=== PATIENT | female | born 1940 | race Caucasian/White ===

== ENCOUNTER 2017-04-14 11:34 | Inpatient (IN) | payer OTHER ==
[2017-04-14] MEDS ORDERED: ACETAMINOPHEN 325 MG TAB PO PRN (13:38)
[2017-04-14] MEDS ORDERED: SENNOSIDES 1 TAB PO PRN (13:40)
[2017-04-14] MEDS ORDERED: BISACODYL 10 MG SUPP PR PRN (13:40)
--- NOTE | 2017-04-14 15:07 | GHP ---
[f rep st] HISTORY AND PHYSICAL POST ADMISSION PHYSICIAN EVALUATION AND REHABILITATION TREATMENT PLAN DATE OF ADMISSION: 04/14/2017 DATE OF EVALUATION: 04/14/2017. TIME OF EVALUATION: 1300. REFERRING FACILITY: [facility]. IMPAIRMENT GROUP: 1.1. DATE OF ONSET: 04/11/2017. REFERRING PHYSICIAN: Dr. Dyer. CONSULTING PHYSICIANS: I have no information regarding whether there was a neurology consult or not. 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 ETIOLOGIC DIAGNOSIS: Left body involvement (right brain). HISTORY OF PRESENT ILLNESS: This patient was admitted to [facility] on 04/11/2017 after a fall in which she was unable to get up. She also was noted to have left upper and lower extremity weakness and slurred speech. Left leg weakness had been gradually developing over 1 - 2 days. She was diagnosed with a cerebrovascular accident. She was out of the time window for consideration of thrombolysis or thrombectomy. MR imaging showed an acute right pontine infarct and remote lacunar infarcts of the right valdivia radiata and internal capsule. CT of the head and neck showed no vascular dissection or occlusion. Echocardiogram showed an ejection fraction of 60% and no abnormalities. She was treated with permissive hypertension. She had been taking metoprolol prior to the event. After several days, lisinopril was started at a low dose. She also was begun on aspirin and atorvastatin. She was medically stabilized and appropriate for transfer to inpatient rehabilitation. She is without any acute complaints. She reports that she has had some left thigh muscle spasms. These have improved. She does not want any pain medications other than acetaminophen. She reports a history of oversedation on opiates in the past. OTHER STUDIES AND LABS DURING HER STAY: On 04/14/2017, a CBC showed a slightly low hematocrit at 35.7, hemoglobin was normal at 12.4 and CBC was otherwise within normal limits. Basic metabolic profile showed an elevated glucose at 152 , a creatinine of 1.1 and an estimated GFR of 49.2, otherwise was within normal limits. EKG showed normal sinus rhythm. A comprehensive metabolic profile was done on 04/11/2017. Liver functions were within normal limits. Glucose was high at 206. Renal function and electrolytes were within normal limits. Troponin was negative on 04/11/2017. Hemoglobin A1c was 7.7 on 04/11/2017. PRECAUTIONS: She is a fall risk and she has aspiration precautions. ACTIVE COMORBIDITIES: She has a tier 3 comorbidity of hemiparesis. PAST MEDICAL HISTORY: 1. Coronary artery disease with stenting in 2003. 2. Hypertension. 3. Diabetes mellitus type 2 which was managed with diet. 4. Right femur fracture and pelvic fractures in a fall approximately a year ago. PAST SURGICAL HISTORY: She has had operative repair of her right femur fracture and she has had a hysterectomy. PRE-HOSPITAL MEDICATIONS: Metoprolol 25 mg p.o. q.h.s. ADMISSION MEDICATIONS: 1. Acetaminophen 650 mg p.o. q.4 hours p.r.n. 2. Aspirin 325 mg p.o. daily. 3. Atorvastatin 40 mg p.o. q.h.s. 4. Enoxaparin 40 mg subcutaneous q.24 hours. 5. Glipizide ER 2.5 mg p.o. daily. 6. Lisinopril 5 mg p.o. daily. ALLERGIES: There are no known drug allergies. FAMILY HISTORY: Noncontributory. PSYCHOSOCIAL HISTORY: She is . She lives with her . She has been a homemaker. She has 3 children, 2 living in [place] and daughter Maddie living in [place]. There are no steps to enter the house. She is a nonsmoker and has no history of alcohol use. REVIEW OF SYSTEMS: She denies headache, vision changes, difficulty swallowing or loss of sensation. She reports weakness in the left upper and lower extremities. She denies fevers or chills, weight change, cough, dyspnea, nausea , vomiting, constipation or diarrhea, dysuria, skin rash or skin breakdown, joint pain or joint swelling. She is sleeping well and denies snoring. Otherwise, a 10-point review of systems is negative. PHYSICAL EXAM: VITAL SIGNS: Blood pressure is 170/92, heart rate is 93, respiratory rate is 18, oxygen saturation is 98% on room air, temperature is 36.6 degrees centigrade. GENERAL: This is a well-nourished, well-developed woman, appears her chronologic age, cooperative and in no acute distress. HEENT : Extraocular movements are intact. Pupils are equal, round, and reactive to light. Mucous membranes are moist. Dentition is in good condition. Airway is moderately crowded, Mallampati class 3. NECK: Supple. HEART: Regular rate and rhythm with no murmurs, rubs, or gallops. LUNGS: Clear to auscultation bilaterally. ABDOMEN: Soft, nontender, nondistended with normoactive bowel sounds and no hepatosplenomegaly. EXTREMITIES: There is no cyanosis, clubbing , or edema. Radial and dorsalis pedis pulses are 1+ bilaterally. NEUROLOGIC: She is alert and oriented x3. Cranial nerves 2-12 are grossly intact but for a slight left facial droop noted at the mouth. She has very mild dysarthria. She has weakness 4/5 overall in the left upper extremity, 3/5 in the left hip flexor and quadriceps extension, 4/5 in the left hamstring. Sensation is intact to light touch. Deep tendon reflexes are 2+ bilaterally at the biceps and patella tendons, and are absent at the Achilles tendons bilaterally. Plantar reflex is indeterminate, she withdraws to pain with testing. There is no pronator drift. Cerebellar testing reveals normal [id number] with the left upper extremity, and ataxia and past pointing with the right upper extremity. She has a resting tremor of the left thumb and forefinger. There is no rigidity. CURRENT LEVEL OF FUNCTION per the preadmission screen. Regarding diet, feeding , and swallowing, she was on a DD4 regular texture diet with thin liquids. Regarding grooming, she required standby assist with a front-wheeled walker and voice cuing for safety. Dressing was accomplished with maximal assistance for lower body. Toileting was accomplished with moderate assistance using grab bars to transfer and minimal assistance to contact guard for maxx care. She was noted to be continent of bladder and bowel. Bed mobility was accomplished with minimal to moderate assist. Transfers required moderate assist and voice cuing using a front-wheeled walker. Endurance was fair. Gait was accomplished with a front-wheeled walker. She was able to walk 50 feet with minimal to moderate assistance. Her left knee tended to buckle. She had a narrow base of support. Regarding communication, she was noted to have mild weakness of the orofacial musculature and mildly dysarthric speech. Regarding cognition, she was noted to be within functional limits but would require further evaluation. IMPRESSION: This patient is a 77-year-old woman with pre-existing hypertension and diabetes as well as coronary artery disease who suffered a cerebrovascular accident of the right galina with left-sided weakness, left upper extremity ataxia and mild dysarthria. She was evaluated at [facility] and begun on aspirin and atorvastatin. Metoprolol was discontinued and she was begun on lisinopril for blood pressure control. She was diagnosed with diabetes mellitus type 2 with hemoglobin A1c of 7.7. She was begun on metformin and glyburide. She is appropriate for inpatient rehabilitation where she will benefit from physical and occupational therapy to optimize her mobility and activities of daily living, speech and language pathology for further cognitive assessment and regarding mild dysarthria, nursing care for skin integrity, fall risk, bowel and bladder, and medication administration, and the care of a physician regarding risk for neurologic deterioration, risk for deep venous thrombosis and comorbid conditions of hypertension and diabetes mellitus. Her goal is to complete an inpatient rehabilitation stay and then discharge home with family and supportive services. It is anticipated that for a safe discharge she will achieve independence with eating, grooming and bed mobility, modified independence for transfers, and most likely supervision to contact guard for bathing as well as possibly assistance for dressing. She will ambulate with a walker for household distances. She will have therapy with physical therapy, occupational therapy, and speech and language pathology for 60 minutes per day for each discipline on 5-7 days of the week. Her expected duration of stay is 7-10 days. It is anticipated that upon discharge, she will continue to benefit from home health services including nursing, speech and language pathology, occupational therapy and physical therapy. ASSESSMENT AND PLAN: 1. Right pontine cerebrovascular accident on 04/11/2017 with left hemiparesis. PT and OT to optimize mobility and activities of daily living. 2. Dysarthria to be assessed and treated per speech and language pathology; attention also to cognition and swallowing. 3. Secondary prevention of cerebrovascular accident. Blood pressure control has been initiated with lisinopril and she is on atorvastatin as well as aspirin. 4. Hypertension. Continue lisinopril. With a blood pressure of 170/92 upon arrival, she will likely need a higher dose. Will monitor and adjust as needed. 5. Diabetes mellitus type 2. Will not continue glyburide but will begin metformin as it is 1st line for treating her condition. Plan to titrate to 100 mg BID; add second agent if blood sugars are not adequately controlled. 6. Renal insufficiency with a GFR in the high 40s, likely due to diabetes mellitus type 2 and hypertension. There is no need for any dose adjustment of her medication at that level of renal function. 7. Coronary artery disease with history of stenting. Continue secondary stroke prevention which will also apply to coronary artery disease with blood pressure control, glycemic control and atorvastatin. 8. History of left femur fracture in a ground level fall. She likely has osteoporosis. We will check a vitamin D level if there is any other reason to get labs. She can follow up on this issue with her primary care provider. 9. Prophylaxis. She will continue enoxaparin 40 mg subcutaneous daily until her mobility improves and her DVT risk, therefore, is reduced. 10. Cerebrovascular disease with signs of prior right basal ganglia CVA on MR imaging as well as diffuse white matter ischemic disease. 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 Physical Therapy can further address her balance and her gait. 11. Code status. She was DNR at [facility] and this status will be continued. /[id number]/MODL MTDD
[2017-04-14] MEDS: metFORMIN HCL 500 MG TAB PO SCH (17:23)
[2017-04-14] MEDS: MULTIVITAMINS 1 EACH TAB PO SCH (20:45)
[2017-04-14] MEDS: PRESERVISION AREDS2 FORMULA EYE VIT 1 EACH PO SCH (20:46)
[2017-04-14] MEDS: ATORVASTATIN CALCIUM 40 MG TAB PO SCH (20:46)
[2017-04-14] MEDS ORDERED: NON-FORMULARY NEW DRUG (Vit A/Vit C/Vit E/Zinc/Copper [Preservision Areds Softgel] 1 EACH) PO SCH (21:00)
[2017-04-15] MEDS: LISINOPRIL 5 MG TAB PO SCH (08:57)
[2017-04-15] MEDS: ASPIRIN EC 325 MG TAB PO SCH (08:57)
[2017-04-15] MEDS: ENOXAPARIN 40 MG/0.4 ML SYR SC SCH (08:57)
[2017-04-15] MEDS: metFORMIN HCL 500 MG TAB PO SCH ×2 (08:57→17:40)
[2017-04-15] MEDS: MULTIVITAMINS 1 EACH TAB PO SCH ×2 (08:58→21:22)
--- NOTE | 2017-04-15 10:21 | SOAPPROG ---
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 PT and OT to optimize mobility and activities of daily living. * Dysarthria to be assessed and treated per speech and language pathology; attention also to cognition and swallowing. * Secondary prevention of cerebral vascular accident. Blood pressure control as been initiated with lisinopril and she is on atorvastatin as well as aspirin. * Hypertension. Continue lisinopril. With a blood pressure of 170/92 upon arrival she will likely need a higher dose. Monitor and adjust as needed. * Diabetes mellitus type 2. Will not continue glyburide but will continue metformin as it is 1st line. Titrate to 1000 mg twice daily starting 04/15/17; add 2nd agent if blood sugars are not adequately controlled. * Renal insufficiency with GFR in the high 40s. Likely due to diabetes mellitus and hypertension. There is no need for dose adjustments of her medications. Recheck BMP 04/16/17. * LLE muscle spasms interfering with sleep. She reports they resolved after using acetaminophen. Will schedule acetaminophen at HS. * History of left femur fracture in a ground level fall. She likely has osteoporosis. Check a vitamin-D level 04/16/17. Chronic/stable conditions: * Coronary artery disease with history of stenting. Continue secondary stroke prevention which will also apply to coronary artery disease with blood pressure control, glycemic control and atorvastatin. * Prophylaxis. Continue enoxaparin 40 mg subcutaneous q.day until her mobility improves and her DVT risk is reduced. * Cerebrovascular disease with signs of prior right basal ganglia CVA on MR imaging as well as diffuse white matter ischemic disease. 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 Physical therapy can further address her balance and her gait. 04/15/17 14:04 Subjective: Sleep was interrupted by muscle spasms overnight in her left leg. Spasms would cause the leg to move. She did not have leg pain. Spasms resolved after she took Tylenol. Otherwise no complaints, not in pain, no fevers, chills, cough, dyspnea. Objective: Vital Signs Temp Pulse Resp BP Pulse Ox 36.6 C 79 16 144/78 H 93 04/15/17 06:33 04/15/17 06:33 04/15/17 06:33 04/15/17 08:57 04/15/17 06:33 04/14/17 04/15/17 04/16/17 05:59 05:59 05:59 Intake Total 740 300 Output Total 550 Balance 190 300 Physical Exam - Physical Exam General Appearance: WD/WN, alert, no apparent distress Respiratory: normal breath sounds, No crackles, No rhonchi, No wheezing Cardiac/Chest: regular rate, rhythm, No diastolic murmur, No systolic murmur Skin: normal color, warm/dry Neuro/Psych: alert, normal mood/affect, oriented x 3, motor weakness (LUE ataxia ) ICD10 Worksheet Patient Problems: Problems Problem Status Onset DM2 (diabetes mellitus, type 2) Acute HTN (hypertension) Acute Left hemiparesis Acute Right pontine cerebrovascular accident Acute
--- NOTE | 2017-04-15 13:44 | PDOREHIP ---
Admission [facility] - Admission - 3 Day Assessment Period Admission Date/Day 1: 04/14/17 Day 2: 04/15/17 Day 3: 04/16/17 - Active Diagnoses Comorbidities and Co-existing Conditions at Admission: 84779. DM (e.g. diabetic retinopathy, nephropathy, and neuropathy) - Skin Conditions Unhealed Pressure Ulcer (1 or more/Stage 1 or >)-Admission: 0. No
[2017-04-15] MEDS: ATORVASTATIN CALCIUM 40 MG TAB PO SCH (21:22)
[2017-04-15] MEDS: ACETAMINOPHEN 325 MG TAB PO SCH (21:22)
[2017-04-15] MEDS: PRESERVISION AREDS2 FORMULA EYE VIT 1 EACH PO SCH (21:22)
[2017-04-16 08:24] LABS: ANION GAP 14 mEq/L (8-16); CALCIUM 10.2 mg/dL (8.5-10.4); CARBON DIOXIDE 23 mEq/l (22-31); CHLORIDE 105 mEq/L (97-110); CREATININE 1.1 mg/dL (0.6-1.0); GLOMERULAR FILTRATION RATE 48; GLUCOSE 132 mg/dL (70-100); POTASSIUM 4.9 mEq/L (3.5-5.2); SODIUM 142 mEq/L (134-144)
[2017-04-16 08:41] LABS: VITAMIN D 25-HYDROXY TOTAL 78.1 ng/mL (30-100)
[2017-04-16] MEDS: ENOXAPARIN 40 MG/0.4 ML SYR SC SCH (08:45)
[2017-04-16] MEDS: LISINOPRIL 5 MG TAB PO SCH (08:45)
[2017-04-16] MEDS: metFORMIN HCL 500 MG TAB PO SCH ×2 (08:45→18:03)
[2017-04-16] MEDS: ASPIRIN EC 325 MG TAB PO SCH (08:45)
[2017-04-16] MEDS: MULTIVITAMINS 1 EACH TAB PO SCH ×2 (08:45→21:08)
--- NOTE | 2017-04-16 15:45 | SOAPPROG ---
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 PT and OT to optimize mobility and activities of daily living. * Dysarthria to be assessed and treated per speech and language pathology; attention also to cognition and swallowing. * Secondary prevention of cerebral vascular accident. Blood pressure control as been initiated with lisinopril and she is on atorvastatin as well as aspirin. * Hypertension. Continue lisinopril. With a blood pressure of 170/92 upon arrival she might need a higher dose, but had a low blood pressure of 108/63 this morning 04/16/2017. Monitor and adjust as needed. * Diabetes mellitus type 2. Will not continue glyburide but will continue metformin as it is 1st line. Titrated to 1000 mg twice daily starting 04/15/17; add 2nd agent if blood sugars are not adequately controlled. * Renal insufficiency with GFR in the high 40s. Likely due to diabetes mellitus and hypertension. There is no need for dose adjustments of her medications. Unchanged on [facility] 04/16/17. * LLE muscle spasms interfering with sleep. She reports they resolved after using acetaminophen. Will schedule acetaminophen at HS. * History of left femur fracture in a ground level fall. She likely has osteoporosis. Vitamin-D level wnl 04/16/17. Chronic/stable conditions: * Coronary artery disease with history of stenting. Continue secondary stroke prevention which will also apply to coronary artery disease with blood pressure control, glycemic control and atorvastatin. * Prophylaxis. Continue enoxaparin 40 mg subcutaneous q.day until her mobility improves and her DVT risk is reduced. * Cerebrovascular disease with signs of prior right basal ganglia CVA on MR imaging as well as diffuse white matter ischemic disease. 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 Physical therapy can further address her balance and her gait. 04/16/17 15:43 Subjective: No complaints. Slept well. Has not noticed any adverse effects of metformin. No cough or dyspnea, no fevers or chills. Feels like her left arm is getting stronger when she pulled herself up from seated. Objective: Vital Signs Temp Pulse Resp BP Pulse Ox 36.7 C 82 18 132/74 H 92 04/16/17 06:52 04/16/17 06:52 04/16/17 06:52 04/16/17 08:45 04/16/17 06:52 Laboratory Results 04/16/17 06:05 04/15/17 04/16/17 04/17/17 05:59 05:59 05:59 Intake Total 740 1186 520 Output Total 550 200 Balance 190 1186 320 Physical Exam - Physical Exam General Appearance: WD/WN, alert, no apparent distress Respiratory: normal breath sounds, No crackles, No rhonchi, No wheezing Cardiac/Chest: regular rate, rhythm, No edema, No diastolic murmur, No systolic murmur Skin: normal color, warm/dry Neuro/Psych: alert, normal mood/affect, oriented x 3, abnormal arts and sciences dean II-XII (Mild left facial droop.), speech abnormalities (Mild dysarthria.) ICD10 Worksheet Patient Problems: Problems Problem Status Onset DM2 (diabetes mellitus, type 2) Acute HTN (hypertension) Acute Left hemiparesis Acute Right pontine cerebrovascular accident Acute
[2017-04-16] MEDS: ACETAMINOPHEN 325 MG TAB PO SCH (21:08)
[2017-04-16] MEDS: PRESERVISION AREDS2 FORMULA EYE VIT 1 EACH PO SCH (21:08)
[2017-04-16] MEDS: ATORVASTATIN CALCIUM 40 MG TAB PO SCH (21:08)
[2017-04-17] MEDS: metFORMIN HCL 500 MG TAB PO SCH ×2 (08:13→17:33)
[2017-04-17] MEDS: ASPIRIN EC 325 MG TAB PO SCH (08:13)
[2017-04-17] MEDS: MULTIVITAMINS 1 EACH TAB PO SCH ×2 (08:13→20:56)
[2017-04-17] MEDS: ENOXAPARIN 40 MG/0.4 ML SYR SC SCH (08:13)
[2017-04-17] MEDS: LISINOPRIL 5 MG TAB PO SCH (08:13)
[2017-04-17] MEDS ORDERED: LISINOPRIL 5 MG TAB PO ONE (08:57)
--- NOTE | 2017-04-17 12:15 | SOAPPROG ---
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 Initial functional independence measure 81. Minimal assistance for bed mobility , contact guard for transfers and ambulating with front wheeled walker. Walked 120 feet, needs minimal assistance when fatigued. Walked 40 feet with trekking pole. Minimal assist for dressing, contact guard transferring into the shower and minimal assistance transferring out; supervision for bathing. Continue PT and OT to optimize mobility and activities of daily living. * Dysarthria, mild. Continue speech and language pathology. No cognitive or language deficit. * Secondary prevention of cerebral vascular accident. Blood pressure control as been initiated with lisinopril and she is on atorvastatin as well as aspirin. * Hypertension. Continue lisinopril; increased from 5 mg q.day to 10 mg q.day starting 04/17/2017. Continue to monitor blood pressure. * Diabetes mellitus type 2. Well-controlled with metformin titrated from 500 mg twice daily to 1000 mg twice daily. Discontinue blood sugar checks on 2016. * Renal insufficiency with GFR in the high 40s. Likely due to diabetes mellitus and hypertension. There is no need for dose adjustments of her medications. Unchanged on BMP 04/16/17. 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 Discussed with Neurology, Dr. ceja, 04/17/2017. He advises that the symptoms may resolve so would not initiate dopaminergic therapy. Advises gabapentin 100 mg at bedtime and titrate until symptoms resolve. Initiated gabapentin 100 mg at bedtime starting 04/17/2017 Chronic/stable conditions: * History of left femur fracture in a ground level fall. She likely has osteoporosis. Vitamin-D level wnl 04/16/17. * Coronary artery disease with history of stenting. Continue secondary stroke prevention which will also apply to coronary artery disease with blood pressure control, glycemic control and atorvastatin. * Prophylaxis. Continue enoxaparin 40 mg subcutaneous q.day until her mobility improves and her DVT risk is reduced. * Cerebrovascular disease with signs of prior right basal ganglia CVA on MR imaging as well as diffuse white matter ischemic disease. 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 Physical therapy can further address her balance and her gait. Attended staffing, 15 minutes. Discussed with case management, nursing, dietitian, pharmacy, PT, OT, [facility]. Lives at home with . He works part- time 4 days a week; additionally adult daughter lives nearby and is available to help. She has a functional goal of mobility with no walker but would use a cane. She needs to be able to accomplish kitchen tasks. Set discharge date for 04/23/2017. 04/17/17 12:20 Subjective: Continues to have left leg movements which interfere with sleep at night. No associated pain or muscle spasm. Denies cough, dyspnea, fevers, chills. Objective: Vital Signs Temp Pulse Resp BP Pulse Ox 36.5 C 71 16 141/77 H 96 04/17/17 08:00 04/17/17 08:00 04/17/17 08:00 04/17/17 08:13 04/17/17 08:00 Laboratory Results 04/16/17 06:05 04/16/17 04/17/17 04/18/17 05:59 05:59 05:59 Intake Total 1186 1320 Output Total 700 Balance 1186 620 - Time Spent With Patient Time Spent With Patient: Greater than 35 minutes floor time today, including more than 50% of time in coordination of care during staffing meeting, and counseling patient. Physical Exam - Physical Exam General Appearance: WD/WN, alert, no apparent distress Respiratory: No respiratory distress, No accessory muscle use Skin: normal color, warm/dry Neuro/Psych: alert, normal mood/affect, oriented x 3, abnormal gait (Ambulating slowly in [place], FWW CGA per PT, step-through pattern), other (resting tremor RUE thumb & first finger) ICD10 Worksheet Patient Problems: Problems Problem Status Onset DM2 (diabetes mellitus, type 2) Acute HTN (hypertension) Acute Left hemiparesis Acute Right pontine cerebrovascular accident Acute
[2017-04-17] MEDS: PRESERVISION AREDS2 FORMULA EYE VIT 1 EACH PO SCH (20:56)
[2017-04-17] MEDS: GABAPENTIN 100 MG CAP PO SCH (20:56)
[2017-04-17] MEDS: ACETAMINOPHEN 325 MG TAB PO SCH (20:56)
[2017-04-17] MEDS: ATORVASTATIN CALCIUM 40 MG TAB PO SCH (20:56)
[2017-04-18] MEDS: LISINOPRIL 10 MG TAB PO SCH (08:11)
[2017-04-18] MEDS: MULTIVITAMINS 1 EACH TAB PO SCH ×2 (08:11→21:06)
[2017-04-18] MEDS: metFORMIN HCL 500 MG TAB PO SCH ×2 (08:11→17:12)
[2017-04-18] MEDS: ASPIRIN EC 325 MG TAB PO SCH (08:11)
[2017-04-18] MEDS: ENOXAPARIN 40 MG/0.4 ML SYR SC SCH (08:12)
--- NOTE | 2017-04-18 12:48 | SOAPPROG ---
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 Initial functional independence measure 81. Minimal assistance for bed mobility , contact guard for transfers and ambulating with front wheeled walker. Walked 120 feet, needs minimal assistance when fatigued. Walked 40 feet with trekking pole. Minimal assist for dressing, contact guard transferring into the shower and minimal assistance transferring out; supervision for bathing. Continue PT and OT to optimize mobility and activities of daily living. * Dysarthria, mild. Continue speech and language pathology. No cognitive or language deficit. * Secondary prevention of cerebral vascular accident. Blood pressure control as been initiated with lisinopril and she is on atorvastatin as well as aspirin. * Hypertension. Continue lisinopril 10mg daily, currently at goal 120-140 * Diabetes mellitus type 2. FBG 180 this AM, ranged 130-180 over past 24hrs while on metformin 1000mg bid - restart glipizide 2.5mg xl, gauge effect - d/w RN, will just check FBG w/ BMP in AM, does not require ACHS gluc as she is not insulin dependent * CKD Stage III. eGFR 40s, likely due to diabetes mellitus and hypertension. 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 - responding well to gabapentin 100 mg at bedtime, hold on uptitration of 100mg HS if needed Chronic/stable conditions: * History of left femur fracture in a ground level fall. She likely has osteoporosis. Vitamin-D level wnl 04/16/17. * Coronary artery disease with history of stenting. Continue secondary stroke prevention which will also apply to coronary artery disease with blood pressure control, glycemic control and atorvastatin. * Prophylaxis. Continue enoxaparin 40 mg subcutaneous q.day until her mobility improves and her DVT risk is reduced. * Cerebrovascular disease with signs of prior right basal ganglia CVA on MR imaging as well as diffuse white matter ischemic disease. 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 Physical therapy can further address her balance and her gait. Attended staffing, 15 minutes. Discussed with case management, nursing, dietitian, pharmacy, PT, OT, BUSINESS SOLUTIONS ARCHITECT. Lives at home with . He works part- time 4 days a week; additionally adult daughter lives nearby and is available to help. She has a functional goal of mobility with no walker but would use a cane. She needs to be able to accomplish kitchen tasks. Set discharge date for 04/23/2017. 04/18/17 12:48 Subjective: chronic poor appetite, ate breakfast, moving bowels, urinating well Objective: Vital Signs Temp Pulse Resp BP Pulse Ox 36.7 C 80 16 120/72 93 04/18/17 07:07 04/18/17 07:07 04/18/17 07:07 04/18/17 08:11 04/18/17 07:07 Laboratory Results 04/16/17 06:05 04/17/17 04/18/17 04/19/17 05:59 05:59 05:59 Intake Total 1320 1455 100 Output Total 700 200 Balance 620 1255 100 Physical Exam - Physical Exam General Appearance: alert, no apparent distress, No obtunded, No anxiety Respiratory: lungs clear, normal breath sounds, No respiratory distress, No crackles, No rales, No rhonchi, No wheezing Cardiac/Chest: regular rate, rhythm, No edema, No tachycardia, No systolic murmur, No irregularly irregular Abdomen: normal bowel sounds, non-tender, soft, No distended, No guarding Neuro/Psych: oriented x 3, other (flat affect, CN II-XII intact w/ exception of XI (left shoulder paresis), motor 4/5 LUE, 3/5 LLE, sensation intact bilat, concentration 7/7, cooperative and following commands) ICD10 Worksheet Patient Problems: Problems Problem Status Onset DM2 (diabetes mellitus, type 2) Acute HTN (hypertension) Acute Left hemiparesis Acute Right pontine cerebrovascular accident Acute
[2017-04-18] MEDS: GABAPENTIN 100 MG CAP PO SCH (21:06)
[2017-04-18] MEDS: ACETAMINOPHEN 325 MG TAB PO SCH (21:06)
[2017-04-18] MEDS: PRESERVISION AREDS2 FORMULA EYE VIT 1 EACH PO SCH (21:06)
[2017-04-18] MEDS: ATORVASTATIN CALCIUM 40 MG TAB PO SCH (21:06)
[2017-04-19] MEDS: metFORMIN HCL 500 MG TAB PO SCH ×2 (08:25→17:14)
[2017-04-19] MEDS: ASPIRIN EC 325 MG TAB PO SCH (08:26)
[2017-04-19] MEDS: LISINOPRIL 10 MG TAB PO SCH (08:26)
[2017-04-19] MEDS: ENOXAPARIN 40 MG/0.4 ML SYR SC SCH (08:26)
[2017-04-19] MEDS: MULTIVITAMINS 1 EACH TAB PO SCH ×2 (08:30→20:20)
[2017-04-19 09:42] LABS: ANION GAP 14 mEq/L (8-16); CARBON DIOXIDE 22 mEq/l (22-31); CHLORIDE 106 mEq/L (97-110); GLOMERULAR FILTRATION RATE 54; GLUCOSE 72 mg/dL (70-100); POTASSIUM 4.5 mEq/L (3.5-5.2); SODIUM 142 mEq/L (134-144)
--- NOTE | 2017-04-19 15:09 | SOAPPROG ---
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 Initial functional independence measure 81. Minimal assistance for bed mobility , contact guard for transfers and ambulating with front wheeled walker. Walked 120 feet, needs minimal assistance when fatigued. Walked 40 feet with trekking pole. Minimal assist for dressing, contact guard transferring into the shower and minimal assistance transferring out; supervision for bathing. Continue PT and OT to optimize mobility and activities of daily living. * Dysarthria, mild. Continue speech and language pathology. No cognitive or language deficit. * Secondary prevention of cerebral vascular accident. Blood pressure control as been initiated with lisinopril and she is on atorvastatin as well as aspirin. * Hypertension. Continue lisinopril 10mg daily, currently at goal 120-140 * Diabetes mellitus type 2. FBG 72 this AM w/o hypoglycemic symptoms s/p initiating sulfonureas yesterday - cont metformin 1000mg bid, glip 2.5 daily - recheck FBG tomorrow AM, get stat glucose if she is having potential hypoglycemic symptoms * CKD Stage III. eGFR 40s, likely due to diabetes mellitus and hypertension. 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 - responding well to gabapentin 100 mg at bedtime Chronic/stable conditions: * History of left femur fracture in a ground level fall. She likely has osteoporosis. Vitamin-D level wnl 04/16/17. * Coronary artery disease with history of stenting. Continue secondary stroke prevention which will also apply to coronary artery disease with blood pressure control, glycemic control and atorvastatin. * Prophylaxis. Continue enoxaparin 40 mg subcutaneous q.day until her mobility improves and her DVT risk is reduced. * Cerebrovascular disease with signs of prior right basal ganglia CVA on MR imaging as well as diffuse white matter ischemic disease. 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 Physical therapy can further address her balance and her gait. Lives at home with . He works part-time 4 days a week; additionally adult daughter lives nearby and is available to help. She has a functional goal of mobility with no walker but would use a cane. She needs to be able to accomplish kitchen tasks. Set discharge date for 04/23/2017. 04/19/17 15:06 Subjective: feeling well this AM, lots of visitors, moving bowels, urinating well Objective: Vital Signs Temp Pulse Resp BP Pulse Ox 36.5 C 85 16 123/72 H 94 04/19/17 06:45 04/19/17 06:45 04/19/17 06:45 04/19/17 08:26 04/19/17 06:45 Laboratory Results 04/19/17 06:20 04/18/17 04/19/17 04/20/17 05:59 05:59 05:59 Intake Total 1455 460 880 Output Total 200 350 150 Balance 1255 110 730 Physical Exam - Physical Exam General Appearance: alert, no apparent distress, No obtunded, No anxiety Respiratory: lungs clear, No crackles, No rales, No stridor, No wheezing Cardiac/Chest: regular rate, rhythm, No edema, No systolic murmur, No irregularly irregular Abdomen: normal bowel sounds, non-tender, soft, No distended, No guarding Neuro/Psych: alert, oriented x 3, other (CN II-XII intact and tested, LLE motor 3/5, LUE 4/5 motor, L hemiparesthesia, slight left mouth droop, cooperative and following commands) ICD10 Worksheet Patient Problems: Problems Problem Status Onset DM2 (diabetes mellitus, type 2) Acute HTN (hypertension) Acute Left hemiparesis Acute Right pontine cerebrovascular accident Acute
[2017-04-19] MEDS: PRESERVISION AREDS2 FORMULA EYE VIT 1 EACH PO SCH (20:19)
[2017-04-19] MEDS: ACETAMINOPHEN 325 MG TAB PO SCH (20:20)
[2017-04-19] MEDS: GABAPENTIN 100 MG CAP PO SCH (20:20)
[2017-04-19] MEDS: ATORVASTATIN CALCIUM 40 MG TAB PO SCH (20:20)
[2017-04-20 07:47] LABS: ANION GAP 13 mEq/L (8-16); CALCIUM 9.9 mg/dL (8.5-10.4); CARBON DIOXIDE 22 mEq/l (22-31); CHLORIDE 106 mEq/L (97-110); CREATININE 1.1 mg/dL (0.6-1.0); GLOMERULAR FILTRATION RATE 48; GLUCOSE 96 mg/dL (70-100); POTASSIUM 4.7 mEq/L (3.5-5.2); SODIUM 141 mEq/L (134-144)
[2017-04-20] MEDS: MULTIVITAMINS 1 EACH TAB PO SCH ×2 (08:50→20:50)
[2017-04-20] MEDS: metFORMIN HCL 500 MG TAB PO SCH ×2 (08:50→17:26)
[2017-04-20] MEDS: ASPIRIN EC 325 MG TAB PO SCH (08:50)
[2017-04-20] MEDS: ENOXAPARIN 40 MG/0.4 ML SYR SC SCH (08:50)
[2017-04-20] MEDS: LISINOPRIL 10 MG TAB PO SCH (08:51)
--- NOTE | 2017-04-20 10:53 | SOAPPROG ---
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 Initial functional independence measure 81. Minimal assistance for bed mobility , contact guard for transfers and ambulating with front wheeled walker. Walked 120 feet, needs minimal assistance when fatigued. Walked 40 feet with trekking pole. Minimal assist for dressing, contact guard transferring into the shower and minimal assistance transferring out; supervision for bathing. Continue PT and OT to optimize mobility and activities of daily living. * Dysarthria, mild. Continue speech and language pathology. No cognitive or language deficit. * Secondary prevention of cerebral vascular accident. Blood pressure control as been initiated with lisinopril and she is on atorvastatin as well as aspirin. * Hypertension. Continue lisinopril; increased from 5 mg q.day to 10 mg q.day starting 04/17/2017. Mostly at goal systolic below 140. * Diabetes mellitus type 2. Well-controlled with metformin titrated from 500 mg twice daily to 1000 mg twice daily. Discontinue blood sugar checks on 2016. * Renal insufficiency with GFR in the high 40s. Likely due to diabetes mellitus and hypertension. There is no need for dose adjustments of her medications. Unchanged on BMP 04/16/17; stable 04/20/17 s/p titration of lisinopril.. 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 Discussed with Neurology, Dr. ceja, 04/17/2017. He advises that the symptoms may resolve so would not initiate dopaminergic therapy. Advises gabapentin 100 mg at bedtime and titrate until symptoms resolve. Initiated gabapentin 100 mg at bedtime starting 04/17/2017 and symptoms improved. Chronic/stable conditions: * History of left femur fracture in a ground level fall. She likely has osteoporosis. Vitamin-D level wnl 04/16/17. * Coronary artery disease with history of stenting. Continue secondary stroke prevention which will also apply to coronary artery disease with blood pressure control, glycemic control and atorvastatin. * Prophylaxis. Continue enoxaparin 40 mg subcutaneous q.day until her mobility improves and her DVT risk is reduced. * Cerebrovascular disease with signs of prior right basal ganglia CVA on MR imaging as well as diffuse white matter ischemic disease. 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 Physical therapy can further address her balance and her gait. Lives at home with . He works part-time 4 days a week; additionally adult daughter lives nearby and is available to help. She has a functional goal of mobility with no walker but would use a cane. She needs to be able to accomplish kitchen tasks. Set discharge date for 04/23/2017. 04/20/17 10:51 Subjective: No complaints. Leg movements at night are much improved and she is sleeping well. She denies pain. No fevers, chills, cough, dyspnea. Objective: Vital Signs Temp Pulse Resp BP Pulse Ox 37.1 C 95 14 114/82 H 96 04/20/17 08:00 04/20/17 08:00 04/20/17 08:00 04/20/17 08:51 04/20/17 08:00 Laboratory Results 04/20/17 07:00 04/19/17 04/20/17 04/21/17 05:59 05:59 05:59 Intake Total 460 1860 Output Total 350 450 Balance 110 1410 Physical Exam - Physical Exam General Appearance: WD/WN, alert, no apparent distress Respiratory: normal breath sounds, No crackles, No rhonchi, No wheezing Cardiac/Chest: regular rate, rhythm, No diastolic murmur, No systolic murmur Skin: normal color, warm/dry Neuro/Psych: alert, normal mood/affect, abnormal gait (Slow with FWW, mildly flexed posture, narrow base.), other (R hand resting tremor.) ICD10 Worksheet Patient Problems: Problems Problem Status Onset DM2 (diabetes mellitus, type 2) Acute HTN (hypertension) Acute Left hemiparesis Acute Right pontine cerebrovascular accident Acute
[2017-04-20] MEDS: PRESERVISION AREDS2 FORMULA EYE VIT 1 EACH PO SCH (20:50)
[2017-04-20] MEDS: ATORVASTATIN CALCIUM 40 MG TAB PO SCH (20:50)
[2017-04-20] MEDS: GABAPENTIN 100 MG CAP PO SCH (20:50)
[2017-04-20] MEDS: ACETAMINOPHEN 325 MG TAB PO SCH (20:51)
[2017-04-21] MEDS: ENOXAPARIN 40 MG/0.4 ML SYR SC SCH (08:02)
[2017-04-21] MEDS: MULTIVITAMINS 1 EACH TAB PO SCH ×2 (08:03→19:55)
[2017-04-21] MEDS: metFORMIN HCL 500 MG TAB PO SCH ×2 (08:03→17:32)
[2017-04-21] MEDS: ASPIRIN EC 325 MG TAB PO SCH (08:03)
[2017-04-21] MEDS: LISINOPRIL 10 MG TAB PO SCH (08:03)
--- NOTE | 2017-04-21 15:48 | SOAPPROG ---
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 Initial functional independence measure 81 on 04/17/2017. Improved to 97 as of . Standby assist for bed mobility and transfers, walked 200 feet standby assist slowly with a front wheeled walker. Timed up and go test was very slow indicating increased fall risk. Supervision for upper body and lower body dressing, but standby assist for APOLINAR hose. Supervision to modified independent for toilet transfers. Advancing to independent in the room today . Continue PT and OT to optimize mobility and activities of daily living. * Dysarthria, mild. Continue speech and language pathology. No cognitive or language deficit. * Secondary prevention of cerebral vascular accident. Blood pressure control as been initiated with lisinopril and she is on atorvastatin as well as aspirin. * Hypertension. Continue lisinopril; increased from 5 mg q.day to 10 mg q.day starting 04/17/2017. Mostly at goal systolic below 140. * Diabetes mellitus type 2. Well-controlled with metformin titrated from 500 mg twice daily to 1000 mg twice daily, and addition of glipizide XL 2.5 mg q.day. Discontinued blood sugar checks on 04/17/2017. * Renal insufficiency with GFR in the high 40s. Likely due to diabetes mellitus and hypertension. There is no need for dose adjustments of her medications. Unchanged on BMP 04/16/17; stable 04/20/17 s/p titration of lisinopril. 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 Discussed with Neurology, Dr. ceja, 04/17/2017. He advises that the symptoms may resolve so would not initiate dopaminergic therapy. Advises gabapentin 100 mg at bedtime and titrate until symptoms resolve. Initiated gabapentin 100 mg at bedtime starting 04/17/2017 and symptoms improved. Chronic/stable conditions: * History of left femur fracture in a ground level fall. She likely has osteoporosis. Vitamin-D level wnl 04/16/17. * Coronary artery disease with history of stenting. Continue secondary stroke prevention which will also apply to coronary artery disease with blood pressure control, glycemic control and atorvastatin. * Prophylaxis. With improved mobility and advancing to independent in her room will discontinue enoxaparin, SCDs and APOLINAR hose. * Cerebrovascular disease with signs of prior right basal ganglia CVA on MR imaging as well as diffuse white matter ischemic disease. 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 Physical therapy can further address her balance and her gait. Attended staffing, 15 minutes. Discussed with case management, dietitian, nursing, PT, OT, CASE LINER. Attended family meeting, patient, and daughter present. Lives at home with . He works part-time 4 days a week; additionally adult daughter lives nearby and is available to help. She has a functional goal of mobility with no walker but would use a cane. She needs to be able to accomplish kitchen tasks. Set discharge date for 04/24/2017. 04/21/17 15:42 Subjective: No complaints. Moved to room 418 today to be independent in the room and she is pleased with the view. Denies fevers, chills, cough, dyspnea. Objective: Vital Signs Temp Pulse Resp BP Pulse Ox 36.9 C 87 16 122/63 H 96 04/21/17 08:00 04/21/17 08:00 04/21/17 08:00 04/21/17 08:03 04/21/17 08:00 Laboratory Results 04/20/17 07:00 04/20/17 04/21/17 04/22/17 05:59 05:59 05:59 Intake Total 1860 1170 150 Output Total 450 Balance 1410 1170 150 - Time Spent With Patient Time Spent With Patient: Greater than 35 minutes floor time today, including more than 50% of time in coordination of care and counseling patient during staffing meeting and family meeting. Physical Exam - Physical Exam General Appearance: WD/WN, alert, no apparent distress Respiratory: normal breath sounds, No crackles, No rhonchi, No wheezing Cardiac/Chest: regular rate, rhythm, No diastolic murmur, No systolic murmur Skin: normal color, warm/dry Neuro/Psych: alert, normal mood/affect, oriented x 3, motor weakness ( Acceptance contact guard assist to arise to seated from supine in bed. Also observed ambulation with physical therapy, moving slowly with front wheeled walker and relying on the right upper extremity more so than left for support.) ICD10 Worksheet Patient Problems: Problems Problem Status Onset DM2 (diabetes mellitus, type 2) Acute HTN (hypertension) Acute Left hemiparesis Acute Right pontine cerebrovascular accident Acute
[2017-04-21] MEDS: GABAPENTIN 100 MG CAP PO SCH (19:55)
[2017-04-21] MEDS: ACETAMINOPHEN 325 MG TAB PO SCH (19:55)
[2017-04-21] MEDS: ATORVASTATIN CALCIUM 40 MG TAB PO SCH (19:55)
[2017-04-21] MEDS: PRESERVISION AREDS2 FORMULA EYE VIT 1 EACH PO SCH (19:55)
[2017-04-22] MEDS: MULTIVITAMINS 1 EACH TAB PO SCH ×2 (09:03→20:26)
[2017-04-22] MEDS: ASPIRIN EC 325 MG TAB PO SCH (09:03)
[2017-04-22] MEDS: metFORMIN HCL 500 MG TAB PO SCH ×2 (09:04→17:58)
[2017-04-22] MEDS: LISINOPRIL 10 MG TAB PO SCH (09:05)
--- NOTE | 2017-04-22 11:33 | SOAPPROG ---
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 Initial functional independence measure 81 on 04/17/2017. Improved to 97 as of . Standby assist for bed mobility and transfers, walked 200 feet standby assist slowly with a front wheeled walker. Timed up and go test was very slow indicating increased fall risk. Supervision for upper body and lower body dressing, but standby assist for APOLINAR hose; APOLINAR hose discontinued 2016. Supervision to modified independent for toilet transfers. Advancing to independent in the room 04/21/2017. Continue PT and OT to optimize mobility and activities of daily living. * Dysarthria, mild. Continue speech and language pathology. No cognitive or language deficit. * Secondary prevention of cerebral vascular accident. Blood pressure control as been initiated with lisinopril and she is on atorvastatin as well as aspirin. * Hypertension. Continue lisinopril; increased from 5 mg q.day to 10 mg q.day starting 04/17/2017. Mostly at goal systolic below 140. * Diabetes mellitus type 2. Well-controlled with metformin titrated from 500 mg twice daily to 1000 mg twice daily, and addition of glipizide XL 2.5 mg q.day. Discontinued blood sugar checks on 04/17/2017. * Renal insufficiency with GFR in the high 40s. Likely due to diabetes mellitus and hypertension. There is no need for dose adjustments of her medications. Unchanged on BMP 04/16/17; stable 04/20/17 s/p titration of lisinopril. 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 Discussed with Neurology, Dr. ceja, 04/17/2017. He advises that the symptoms may resolve so would not initiate dopaminergic therapy. Advises gabapentin 100 mg at bedtime and titrate until symptoms resolve. Initiated gabapentin 100 mg at bedtime starting 04/17/2017 and symptoms improved. Chronic/stable conditions: * History of left femur fracture in a ground level fall. She likely has osteoporosis. Vitamin-D level wnl 04/16/17. * Coronary artery disease with history of stenting. Continue secondary stroke prevention which will also apply to coronary artery disease with blood pressure control, glycemic control and atorvastatin. * Prophylaxis. With improved mobility and advancing to independent in her room will discontinue enoxaparin, SCDs and APOLINAR hose. * Cerebrovascular disease with signs of prior right basal ganglia CVA on MR imaging as well as diffuse white matter ischemic disease. 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 Physical therapy can further address her balance and her gait. Lives at home with . He works part-time 4 days a week; additionally adult daughter lives nearby and is available to help. She has a functional goal of mobility with no walker but would use a cane. She needs to be able to accomplish kitchen tasks. Set discharge date for 04/24/2017. 2 04/22/17 11:30 Subjective: No complaints. Slept well. Sleeping better as she is no longer using SCDs at night. Denies fevers, chills, cough, dyspnea. Objective: Vital Signs Temp Pulse Resp BP Pulse Ox 36.5 C 88 16 135/75 H 96 04/22/17 08:00 04/22/17 08:00 04/22/17 08:00 04/22/17 09:05 04/22/17 08:00 Laboratory Results 04/20/17 07:00 04/21/17 04/22/17 04/23/17 05:59 05:59 05:59 Intake Total 1170 1050 236 Balance 1170 1050 236 Physical Exam - Physical Exam General Appearance: WD/WN, alert, no apparent distress Respiratory: No respiratory distress, No accessory muscle use Skin: normal color, warm/dry Neuro/Psych: alert, normal mood/affect, oriented x 3 ICD10 Worksheet Patient Problems: Problems Problem Status Onset DM2 (diabetes mellitus, type 2) Acute HTN (hypertension) Acute Left hemiparesis Acute Right pontine cerebrovascular accident Acute
[2017-04-22] MEDS: GABAPENTIN 100 MG CAP PO SCH (20:26)
[2017-04-22] MEDS: PRESERVISION AREDS2 FORMULA EYE VIT 1 EACH PO SCH (20:26)
[2017-04-22] MEDS: ATORVASTATIN CALCIUM 40 MG TAB PO SCH (20:26)
[2017-04-23] MEDS: LISINOPRIL 10 MG TAB PO SCH (08:03)
[2017-04-23] MEDS: ASPIRIN EC 325 MG TAB PO SCH (08:03)
[2017-04-23] MEDS: metFORMIN HCL 500 MG TAB PO SCH ×2 (08:03→17:02)
[2017-04-23] MEDS: MULTIVITAMINS 1 EACH TAB PO SCH ×2 (08:03→20:22)
--- NOTE | 2017-04-23 15:37 | SOAPPROG ---
SOAP Progress Note Assessment/Plan: Assessment: 77-year-old female with a right-sided pontine stroke on 04/11/2017 with left- sided hemiparesis, impairments in mobility, self-care, and cognition. Today's update: Patient is doing extremely well, participating in therapy, looking forward to outpatient therapy with physical therapy, occupational therapy, speech therapy at [facility]. Remainder of medical plan is relatively unchanged. A total of 35 minutes was spent on the floor in the care of the patient, the majority of which was spent counseling and coordination of care regarding discharge planning. * Right pontine cerebrovascular accident on 04/11/2017 with left hemiparesis. Initial functional independence measure 81 on 04/17/2017. Improved to 97 as of . Standby assist for bed mobility and transfers, walked 200 feet standby assist slowly with a front wheeled walker. Timed up and go test was very slow indicating increased fall risk. Supervision for upper body and lower body dressing, but standby assist for APOLINAR hose; APOLINAR hose discontinued 2016. Supervision to modified independent for toilet transfers. Advancing to independent in the room 04/21/2017. Continue PT and OT to optimize mobility and activities of daily living. * Dysarthria, mild. Continue speech and language pathology. No cognitive or language deficit. * Secondary prevention of cerebral vascular accident. Blood pressure control as been initiated with lisinopril and she is on atorvastatin as well as aspirin. * Hypertension. Continue lisinopril; increased from 5 mg q.day to 10 mg q.day starting 04/17/2017. Mostly at goal systolic below 140. * Diabetes mellitus type 2. Well-controlled with metformin titrated from 500 mg twice daily to 1000 mg twice daily, and addition of glipizide XL 2.5 mg q.day. Discontinued blood sugar checks on 04/17/2017. * Renal insufficiency with GFR in the high 40s. Likely due to diabetes mellitus and hypertension. There is no need for dose adjustments of her medications. Unchanged on BMP 04/16/17; stable 04/20/17 s/p titration of lisinopril. 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 Discussed with Neurology, Dr. ceja, 04/17/2017. He advises that the symptoms may resolve so would not initiate dopaminergic therapy. Advises gabapentin 100 mg at bedtime and titrate until symptoms resolve. Initiated gabapentin 100 mg at bedtime starting 04/17/2017 and symptoms improved. Chronic/stable conditions: * History of left femur fracture in a ground level fall. She likely has osteoporosis. Vitamin-D level wnl 04/16/17. * Coronary artery disease with history of stenting. Continue secondary stroke prevention which will also apply to coronary artery disease with blood pressure control, glycemic control and atorvastatin. * Prophylaxis. With improved mobility and advancing to independent in her room will discontinue enoxaparin, SCDs and APOLINAR hose. * Cerebrovascular disease with signs of prior right basal ganglia CVA on MR imaging as well as diffuse white matter ischemic disease. 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 Physical therapy can further address her balance and her gait. Lives at home with . He works part-time 4 days a week; additionally adult daughter lives nearby and is available to help. She has a functional goal of mobility with no walker but would use a cane. She needs to be able to accomplish kitchen tasks. Set discharge date for 04/24/2017. 04/23/17 15:34 Subjective: Chief complaint: Neurological stability and discharge planning No acute events overnight. Patient denies any shortness of breath or chest pain , or any new numbness, tingling, or weakness. She is looking forward to going home, has no concerns. We discussed discharge medications and planning. She will continue therapies at [facility] on an outpatient basis, physical therapy, occupational therapy, and speech language pathology. Objective: Vital Signs Temp Pulse Resp BP Pulse Ox 36.5 C 81 18 116/73 93 04/23/17 08:00 04/23/17 08:00 04/23/17 08:00 04/23/17 08:03 04/23/17 08:00 Laboratory Results 04/20/17 07:00 04/22/17 04/23/17 04/24/17 05:59 05:59 05:59 Intake Total 1050 1036 480 Balance 1050 1036 480 Physical Exam - Physical Exam General Appearance: WD/WN, alert, no apparent distress EENT: No scleral icterus (R), No scleral icterus (L) Respiratory: lungs clear, normal breath sounds, No respiratory distress, No accessory muscle use, No decreased breath sounds Cardiac/Chest: normal peripheral pulses, regular rate, rhythm Skin: normal color, warm/dry, No cyanosis Neuro/Psych: alert, normal mood/affect, oriented x 3 (Walking with a front wheeled walker) ICD10 Worksheet Patient Problems: Problems Problem Status Onset DM2 (diabetes mellitus, type 2) Acute HTN (hypertension) Acute Left hemiparesis Acute Right pontine cerebrovascular accident Acute
--- NOTE | 2017-04-23 15:45 | PDOREHIP ---
Admission [facility] - Admission - 3 Day Assessment Period Admission Date/Day 1: 04/14/17 Day 2: 04/15/17 Day 3: 04/16/17 Discharge [facility] - Discharge - 3 Day Assessment Period 2 Days Prior to Anticipated Discharge Date: 04/22/17 1 Day Prior to Anticipated Discharge Date: 04/23/17 Anticipated Discharge Date: 04/24/17 - Discharge Skin Conditions Unhealed Pressure Ulcer (1 or more/Stage 1 or >)-Discharge: 0. No
--- NOTE | 2017-04-23 16:53 | PDDCSUM ---
Discharge Summary Discharge Summary: Name: Martha Alvarenga Admission date: 04/14/2017 Discharge date: 04/24/2017 Discharging physician: Sree Whipple MD Admitting diagnosis: 1.1, stroke with left body involvement, right brain. Left -sided hemiparesis following a right pontine cerebral vascular accident Discharge diagnosis: Same Comorbid diagnoses: Dysarthria, impairments in mobility, self-care, hypertension, diabetes mellitus type 2, renal insufficiency, periodic limb movements of sleep, history of left femur fracture in a ground level fall, coronary artery disease with history of stenting, chronic cerebral vascular disease Consultations: physical therapy, occupational therapy, speech language pathology , social work, dietary Procedures: None Reason for admission: Please see the history and physical by Dr. Blankenship on 04/2017 for full details, but briefly the patient was diagnosed with a stroke in [facility] on 04/11/2017 after a fall with left upper and lower extremity weakness and slurred speech. She did not received thrombolysis and thrombectomy because of the time course. MR showed acute right pontine infarct and remote lacunar infarcts in the right valdivia radiata and internal capsule. She had impairments in mobility and self-care as well as dysarthria, admitted to inpatient rehabilitation on 04/14/2017. Rehabilitation course: Initial functional independence measure was 81, and improved to over 97. She was essentially at the point where she was receiving supervision for most ADLs, using a front wheel walker with some standby assistance for mobility. She was independent in her room. Dysarthria improved over the course of her rehabilitation. She continued to be medically stable with secondary prevention on lisinopril and atorvastatin as well as aspirin, hypertension was mostly controlled on lisinopril, increased to 20 mg daily on day of discharge from 10 mg daily. Diabetes type 2 was also controlled on glipizide 2.5 mg daily. She did have ongoing periodic limb movements of sleep after the pontine stroke, discussed with Neurology on 04/17/2017 and they advised against any dopaminergic therapy. Recommended gabapentin 100 mg at bedtime and titrate until symptoms resolved, and they did resolve at 100 mg dose. Discharge plan: Patient is discharging home with home health RN, PT, OT, and [employer]. Condition: As noted above, she is modified independent with mobility and most self-care, will be discharging home with some supervision and outpatient therapies. She is on a diabetic diet but otherwise regular diet with thin liquids. Medications at discharge: Gabapentin 100 mg p.o. at bedtime Lisinopril 20 mg p. o. daily Metformin 1000 mg p.o. twice daily with meals Multivitamin twice Daily Vitamin-A/vitamin-C/vitamin-D/zinc/copper 1 each every night Aspirin 325 mg daily Atorvastatin 40 mg p.o. at bedtime Glipizide 2.5 mg p.o. daily Pending studies: None Issues to be addressed at follow-up: She will continue with physical therapy, occupational therapy, and speech therapy. She should have her BUN/ Cr checked with her PCP at upcoming appt, and have blood pressure monitored. Follow up: Follow up with her primary care provider, Dr. Gonzales, 05/05/2017 at 1:50 p.m. On the day of discharge, she had no additional questions and no new concerns. No new numbness, tingling, or weakness, no new shortness of breath or chest pain. Slightly elevated blood pressure, lisinopril was increased as noted above to 20 mg dose daily.
[2017-04-23 20:06] VITALS: O2SAT 98
[2017-04-23] MEDS: GABAPENTIN 100 MG CAP PO SCH (20:22)
[2017-04-23] MEDS: PRESERVISION AREDS2 FORMULA EYE VIT 1 EACH PO SCH (20:22)
[2017-04-23] MEDS: ATORVASTATIN CALCIUM 40 MG TAB PO SCH (20:22)
[2017-04-24 08:13] VITALS: BP 116/66; PULSE 78; RESP 14; TEMP 97.9
[2017-04-24] MEDS: MULTIVITAMINS 1 EACH TAB PO SCH (08:26)
[2017-04-24] MEDS: metFORMIN HCL 500 MG TAB PO SCH (08:26)
[2017-04-24] MEDS: ASPIRIN EC 325 MG TAB PO SCH (08:27)
[2017-04-24] MEDS ORDERED: LISINOPRIL 20 MG TAB PO SCH (09:00)
== END 2017-04-24 13:45 | disposition home health service (06) | DRG 57 ==
LOC: BREH 12:11
PROVIDERS: ADMIT Internal Medicine; ATTEND Internal Medicine
PROC: F07M3ZZ Motor Function Treatment of Musculoskeletal System - Whole Body (ICD-10-PCS; principal; 2017-04-14)
PROC: F08Z7ZZ Vocational Activities and Functional Community or Work Reintegration Skills Treatment (ICD-10-PCS; principal; 2017-04-14)
PROC: F0636ZZ Communicative/Cognitive Integration Skills Treatment of Neurological System - Whole Body (ICD-10-PCS; principal; 2017-04-14)
DX: I69.354 Hemiplegia and hemiparesis following cerebral infarction affecting left non-dominant side (principal); I69.322 Dysarthria following cerebral infarction; I10 Essential (primary) hypertension; G47.61 Periodic limb movement disorder; E11.9 Type 2 diabetes mellitus without complications; N28.9 Disorder of kidney and ureter, unspecified; I25.10 Atherosclerotic heart disease of native coronary artery without angina pectoris; Z95.5 Presence of coronary angioplasty implant and graft; M81.0 Age-related osteoporosis without current pathological fracture; Z66 Do not resuscitate
CPT/HCPCS: 92507-GN; 92522-GN; 92610-GN; 97110-GP; 97112-GO; 97112-GP; 97116-GP; 97162-GP; 97166-GO; 97530-GO; 97530-GP; 97532-GO; 97535-GO; 99366-GO; J1650